=== PATIENT | male | born 1960 | race Caucasian/White ===

== ENCOUNTER 2021-01-23 10:55 | Emergency (ER) | payer OTHER, SELFPAY ==
[2021-01-23 11:06] VITALS: BP 154/85; PULSE 99; RESP 16; TEMP 37; O2SAT 98
--- NOTE | 2021-01-23 11:09 | ECG_ITS ---
Measurements Intervals [place] Rate: 95 P: 75 TX: 155 QRS: 60 QRSD: 89 T: 62 QT: 344 QTc: 433 Interpretive Statements SINUS RHYTHM FREQUENT VENTRICULAR PREMATURE COMPLEXES ABNORMAL ECG Electronically Signed On 01-23-2021 14:54:00 CDT by Himanshu Arzate D.O.
--- NOTE | 2021-01-23 11:40 | ED.ARRPALP ---
HPI - Arrhythmia/Palpitations General Chief Complaint: Arrhythmia/Palpitations Stated Complaint: chest palpitation Time Seen by Provider: 01/23/21 11:41 Source: patient and RN notes reviewed Mode of arrival: ambulatory Limitations: no limitations History of Present Illness HPI narrative: 60-year-old male presents with concern for 3 to 4-day history of heart palpitations. Reports in 2013 he had 3 stents placed. He denies any chest pain, shortness of breath, syncope, near syncope, diaphoresis, general malaise. 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 He denies any intervention. MD complaint: palpitations Related Data Home Medications Medication Instructions Recorded Confirmed amlodipine 10 mg PO DAILY 01/23/21 01/23/21 atorvastatin [Lipitor] 40 mg PO DAILY 01/23/21 01/23/21 clopidogrel [Plavix] 75 mg PO DAILY 01/23/21 01/23/21 Allergies Allergy/AdvReac Type Severity Reaction Status Date / Time Penicillins Allergy Unknown Hives Verified 01/23/21 11:27 Review of Systems Review of Systems: CONSTITUTIONAL: Denies malaise, chills, sweats, or fever. EYES: Denies visual changes, redness, or discharge. CARDIOVASCULAR: Denies chest pain or edema. Reports frequent palpitations for 3 days RESPIRATORY: Denies cough or dyspnea. GASTROINTESTINAL: Denies abdominal pain, nausea, vomiting, diarrhea, bloody, or mucous stools. MUSCULOSKELETAL: Denies back pain, joint pain, or myalgia. NEUROLOGIC: Denies numbness, weakness, syncope, or headache. All systems reviewed & are unremarkable except as noted in HPI and below PMFSH Comments At time of signature, agree with nursing past medical, surgical, social and family history. There is no relevant family history pertinent to the presenting complaint Exam Narrative: GENERAL: Well-appearing, well-nourished, and in no acute distress. HEAD: Normocephalic, atraumatic. EYES: PERRLA, conjunctivae clear ENT: Mucous membranes moist. NECK: Supple. No lymphadenopathy. No jugular venous distension, thyromegaly, or carotid bruits. Carotids were easily palpable bilaterally. CHEST: No respiratory distress. Clear to auscultation. No bony deformities, no asymmetry. Speaks in full sentences. HEART: Regular rate and rhythm. No murmur heard. Normal peripheral pulses. SKIN: Warm, dry, no visible rash. NEURO: Alert and oriented x3. PSYCH: Normal mood and affect Course Course Emergency Course: Discussed with patient limited diagnostic capability at [facility]. Discussed transfer to emergency department for further evaluation. At this time patient prefers to follow-up with cardiology and understands reasons to go to the emergency room if symptoms worsen or change. Patient is aware of diagnosis, understands and agrees to treatment plan. Anticipatory guidance given. Patient agrees to follow-up as directed and is aware of reasons to seek care at the emergency department. Portions of this record may have been created with voice recognition software Vital Signs Vital signs: Vital Signs Temperature 98.6 F 01/23/21 11:06 Pulse Rate 99 01/23/21 11:06 Respiratory Rate 16 01/23/21 11:06 Blood Pressure 154/85 H 01/23/21 11:06 Pulse Oximetry 98 01/23/21 11:06 Temperature 98.6 F 01/23/21 11:06 Pulse Rate 99 01/23/21 11:06 Respiratory Rate 16 01/23/21 11:06 Blood Pressure 154/85 H 01/23/21 11:06 Pulse Oximetry 98 01/23/21 11:06 Reviewed. Patient has history of hypertension MDM - Arrhythmia/Palpitations MDM Narrative Medical decision making narrative: Exam findings show no acute concerns or changes; patient is non-toxic appearing and is in no distress. Patient is appropriate for outpatient treatment and follow-up. Critical Care Time Critical Care Time Critical Care Time: No Discharge Plan Discharge Clinical Impression: Frequent PVCs Patient Disposition: Home, Self-Care Condition: Stable Instructions: Premature Ventricular Contrac
== END 2021-01-23 12:07 | disposition home or self-care (01) ==
PROVIDERS: Emergency Provider Nurse Practitioner
DX: I49.3 Ventricular premature depolarization (principal); Z95.5 Presence of coronary angioplasty implant and graft; I10 Essential (primary) hypertension
CPT/HCPCS: 93005; 99213; G0463